=== PATIENT | female | born 1955 | race Caucasian/White ===

== ENCOUNTER → 2019-09-18 | Outpatient (CLI) | payer OTHER | LOC: M.MRI 11:30 → M.RAD 11:40 | DX: Z12.31 Encounter for screening mammogram for malignant neoplasm of breast (principal); M47.816 Spondylosis without myelopathy or radiculopathy, lumbar region; M43.16 Spondylolisthesis, lumbar region; M48.061 Spinal stenosis, lumbar region without neurogenic claudication ==

== ENCOUNTER → 2019-10-01 | Outpatient (CLI) | payer OTHER ==
[2019-10-01 08:47] LABS: CREATININE 0.8 mg/dL (0.6-1.3)
--- NOTE | 2019-10-01 10:37 | NUR ---
CALLED TO CT TO EVALUATE PT FOR A REACTION TO CONTRAST. PT FEELS SHAKEY BUT SHOWS NO SIGNS OF REACTION. LUNG DORMAN CLEAR TO AUSCLUTATION AND PAIN IN THE CHEST IS SUBSIDING. DR. MONIQUE CAME IN AND EVALUATED PT WELL. BP 142/72, HR 92 SA02 100. PT TOLD FEELING MUCH BETTER NOW. PT TO BE SENT HOME WITH INSTRUCTIONS TO RETURN TO ER IF SYMPTOMS GET WORSE.
== END ==
LOC: M.LAB 08:00 → M.CT 09:00
PROVIDERS: Nurse Practitioner Family
DX: K80.20 Calculus of gallbladder without cholecystitis without obstruction (principal); N28.9 Disorder of kidney and ureter, unspecified; I10 Essential (primary) hypertension; K57.30 Diverticulosis of large intestine without perforation or abscess without bleeding; N28.1 Cyst of kidney, acquired

== ENCOUNTER → 2021-06-24 | Outpatient (CLI) | payer OTHER | LOC: M.RAD 11:25 | PROVIDERS: ATTEND Family Medicine | DX: Z12.31 Encounter for screening mammogram for malignant neoplasm of breast (principal) ==

== ENCOUNTER 2021-07-12 17:05 | Emergency (ER) | payer OTHER ==
[~2021-07-12] VITALS: Ht 165.1 cm; Wt 104.3 kg
[2021-07-12] MEDS ORDERED: OMEPRAZOLE40 MG PO (17:16)
[2021-07-12 19:30] VITALS: BP 150/85
== END 2021-07-12 19:30 | disposition home or self-care (01) ==
LOC: M.ERS 17:05
DX: S93.602A Unspecified sprain of left foot, initial encounter (principal); K21.9 Gastro-esophageal reflux disease without esophagitis; Z79.899 Other long term (current) drug therapy; W19.XXXA Unspecified fall, initial encounter; Y93.89 Activity, other specified; Y92.89 Other specified places as the place of occurrence of the external cause; Y99.8 Other external cause status